=== PATIENT | female | born 1995 | race Caucasian/White ===

== ENCOUNTER 2017-05-11 11:52 | Emergency (ER) | payer BC ==
[2017-05-11 13:02] VITALS: BP 119/74
--- NOTE | 2017-05-11 13:20 | UC ---
Respiratory Complaint HPI - HPI Summary HPI Summary: Faye presents with runny nose and dry cough for a month. She has history of seasonal allergies. States that whenever she returns to school seems to get this cold that persists. She had history of childhood asthma. She states that the cough is sometimes productive. She states that occasionally she has wheezing that gets worst every times she laughs. She denies any chest pain or SOB. she denies any fevers. She states her right nostril is worst than left. - History of Current Complaint Chief Complaint: UCGeneralIllness Stated Complaint: SINUS,COUGH,CHEST CONGESTION Time Seen by Provider: 05/11/17 12:40 Hx Last Menstrual Period: last week - Allergies/Home Medications Allergies/Adverse Reactions: Allergies Allergy/AdvReac Type Severity Reaction Status Date / Time No Known Allergies Allergy Verified 05/11/17 12:58 Home Medications: Home Medications Control Pill 1 tab PO DAILY 05/11/17 [History Confirmed 05/11/17] PMH/Surg Hx/FS Hx/Imm Hx Previously Healthy: Yes Respiratory History: Asthma - childhood - Surgical History Surgical History: None - Family History Known Family History: Negative: Respiratory Disease - Social History Alcohol Use: Weekly Substance Use Type: None Smoking Status (MU): Never Smoked Tobacco Review of Systems Constitutional: Negative ENT: Nasal Discharge, Sinus Congestion Respiratory: Cough All Other Systems Reviewed And Are Negative: Yes Physical Exam Triage Information Reviewed: Yes Appearance: Well-Appearing Vital Signs: Initial Vital Signs Temp 98.5 F 05/11/17 12:59 Pulse 57 05/11/17 12:59 Resp 16 05/11/17 12:59 BP 119/74 05/11/17 12:59 Pulse Ox 98 05/11/17 12:59 Vital Signs Reviewed: Yes Eyes: Positive: Conjunctiva Clear, Other: - allergic shinners under eyes ENT: Positive: Pharynx normal - with post nasal drip present, Nasal congestion, Nasal drainage, TMs normal, Other: - no sinus tenderness Neck: Positive: Supple, Nontender, No Lymphadenopathy Respiratory: Positive: Lungs clear, Normal breath sounds, Other: - neg egophony Cardiovascular: Positive: RRR Abdomen Description: Positive: Nontender, Soft Bowel Sounds: Positive: Present Neurological: Positive: Alert Skin Exam: Normal UC Diagnostic Evaluation - Laboratory O2 Sat by Pulse Oximetry: 98 Respiratory Course/Dx - Course Course Of Treatment: 21F presents with runny nose and dry cough for a month. She has history of seasonal allergies. States that whenever she returns to school seems to get this cold that persists. She had history of childhood asthma. She states that the cough is sometimes productive. She states that occasionally she has wheezing that gets worst every times she laughs. She denies any chest pain or SOB. she denies any fevers. She states her right nostril is worst than left. lungs CTA. neg egophony. no sinus tenderness. medications reviewed. symptoms seem more allergic vs bronchitis. will treat with zytrec, flonase and inhaler. medications reviewed. patient understands and agrees with plan. - Differential Dx/Diagnosis Differential Diagnosis/HQI/PQRI: Asthma, Bronchitis, Lower Resp Infection Provider Diagnoses: cough, allergic rhinitis Discharge - Discharge Plan Condition: Good Disposition: HOME Prescriptions: Albuterol HFA INHALER* [Ventolin HFA Inhaler*] 1 puff INH Q6H PRN #1 mdi PRN Reason: Cough Fluticasone NASAL SPRAY 50MCG* [Flonase NASAL SPRAY 50MCG*] 2 spray BOTH NARES DAILY #1 btl Patient Education Materials: Allergic Rhinitis (ED) Referrals: [facility] [place] [facility] REFERRAL [Outside] Additional Instructions: Use saline spray in nose as much as needed Use humidifier in room or can use warm water in bowls Use intranasal steroid one spray each nostril twice a day Use inhaler one-two puffs every 4-6 hours for cough Take zytrec once a day Take Tylenol or ibuprofen for headache every 6 hours Return to ED if develop any new or worsening symptoms
== END 2017-05-11 13:35 | disposition home or self-care (01) ==
LOC: UCCORT 11:52
DX: R05 Cough (principal); J30.9 Allergic rhinitis, unspecified; J45.909 Unspecified asthma, uncomplicated
CPT/HCPCS: 99202; G0463